=== PATIENT | female | born 2000 | race Two or more races ===

== ENCOUNTER 2019-01-02 22:48 | Emergency (ER) | payer OTHER ==
[2019-01-02 22:56] VITALS: BP 123/71
--- NOTE | 2019-01-02 23:10 | ED Physician Documentation ---
History of Present Illness - Stated complaint Stated Complaint: NEXPLANON REMOVAL - Chief complaint Chief Complaint: Neuro - History obtained from History obtained from: Patient - History of Present Illness Timing: How many weeks ago (2) - Additonal information Additional information: 18-year-old female had Nexplanon placed 2 weeks ago and Sshe is having issues with headache nausea and vomiting. She has had these issues since insertion and she has had similar symptoms when she had the Nexplanon placed previously and these resolved within 2 days. Her symptoms have now been present 2 weeks she states they are intolerable and she wants to have the Nexplanon removed today, now. Review of Systems Constitutional: reports: Fever Eyes: denies: Decreased vision Ears: denies: Ear pain Nose: denies: Rhinorrhea / runny nose, Congestion Throat: denies: Sore throat Cardiac: denies: Chest pain / pressure Respiratory: denies: Dyspnea, Cough GI: reports: Nausea, Vomiting. denies: Abdominal Pain : denies: Dysuria, Frequency Skin: denies: Rash Musculoskeletal: denies: Neck pain, Back pain, Extremity pain Neurologic: reports: Headache. denies: Generalized weakness, Focal weakness, Numbness, Head injury, LOC PD PAST MEDICAL HISTORY - Past Medical History Past Medical History: No - Past Surgical History Past Surgical History: Yes - Present Medications Home Medications: Ambulatory Orders Medication Instructions Recorded Confirmed Etonogestrel [Nexplanon] 01/02/19 - Allergies Allergies/Adverse Reactions: Allergies Allergy/AdvReac Type Severity Reaction Status Date / Time No Known Drug Allergies Allergy Verified 01/02/19 22:56 - Social History Does the pt smoke?: No Smoking Status: Never smoker Does the pt drink ETOH?: No Does the pt have substance abuse?: No - Immunizations Immunizations are current?: Yes - POLST Patient has POLST: No PD ED PE NORMAL - Vitals Vital signs reviewed: Yes (normal ) - General General: Alert and oriented X 3, No acute distress, Well developed/nourished - HEENT HEENT: Atraumatic, PERRL, EOMI, Ears normal, Moist mucous membranes, Pharynx benign, Dentition benign - Neck Neck: Supple, no meningeal sign, No bony TTP - Cardiac Cardiac: RRR, No murmur - Respiratory Respiratory: No respiratory distress, Clear bilaterally - Abdomen Abdomen: Soft, Non tender - Back Back: No CVA TTP, No spinal TTP - Derm Derm: Normal color, Warm and dry, No rash - Extremities Extremities: No deformity, No edema, No calf tenderness / cord - Neuro Neuro: Alert and oriented X 3, prepress specialist 2-12 intact, No motor deficit, No sensory deficit, Normal speech Eye Opening: Spontaneous Motor: Obeys Commands Verbal: Oriented GCS Score: 15 - Psych Psych: Normal mood, Normal affect Results - Vitals Vitals: Vital Signs - 24 hr 01/02/19 22:52 Temperature 36.2 C L Heart Rate 67 Respiratory 16 Rate Blood Pressure 123/71 O2 Saturation 100 Oxygen O2 Source Room air - Labs Labs: Laboratory Tests 01/02/19 23:15 Urine Color YELLOW Urine Clarity CLEAR Urine pH 6.0 Ur Specific [place] 1.025 Urine Protein NEGATIVE Urine Glucose (UA) NEGATIVE Urine Ketones NEGATIVE Urine Occult Blood NEGATIVE Urine Nitrite NEGATIVE Urine Bilirubin NEGATIVE Urine Urobilinogen 0.2 (NORMAL) Ur Leukocyte Esterase NEGATIVE Ur Microscopic Review NOT INDICATED Urine Culture Comments NOT INDICATED Urine HCG, Qual NEGATIVE Procedures - FB removal FB location: Subcutaneous FB removal preparation: Local anesthesia-specify (1% lido with bicarb) Removal method: Foreceps, Incision FB removal aftercare: No complications, Patient tolerated well, Removed successfully PD MEDICAL DECISION MAKING - ED course Complexity details: d/w leasing consultant (Atilio LIMA PEST CONTROL SUPERVISOR hyperion essbase developer. ) ED course: 18-year-old female who has had Nexplanon placed 2 weeks ago desires this to be removed today. She does complain of headache nausea and vomiting and she is adamant. I have consulted the on-call PEST CONTROL SUPERVISOR doctor at [facility] and she states that spaces are available in the clinic tomorrow for removal and symptoms are likely related. She gives recommended procedural guidelines and will be available tomorrow if needed. The patient would like to have this r emoved now rather than tomorrow and this is done in the ED with good results. Departure - Departure Disposition: 01 Home, Self Care Clinical Impression: Encounter for Nexplanon removal Condition: Stable Instructions: Etonogestrel implant Follow-Up: [facility] [Provider Group]
[2019-01-02] MEDS ORDERED: BUFFERED LIDOCAINE 10 ML SYRINGE SUBQ STA (23:11)
[2019-01-02 23:22] LABS: BILIRUBIN,URINE NEGATIVE (NEGATIVE); GLUCOSE, URINE (UA) NEGATIVE (NEGATIVE); KETONES,URINE (UA) NEGATIVE (NEGATIVE); LEUKOCYTE ESTERASE, URINE NEGATIVE (NEGATIVE); NITRITE,URINE NEGATIVE (NEGATIVE); OCCULT BLOOD,URINE NEGATIVE (NEGATIVE); PROTEIN,URINE NEGATIVE (NEGATIVE); UROBILINOGEN,URINE 0.2 (NORMAL) E.U./dL (NORMAL)
[2019-01-02 23:24] LABS: CLARITY,URINE CLEAR (CLEAR); HCG UR QUAL NEGATIVE
== END 2019-01-02 23:45 | disposition home or self-care (01) ==
LOC: ED 22:48
DX: Z30.46 Encounter for surveillance of implantable subdermal contraceptive (principal)
CPT/HCPCS: 10120; 11982; 81001; 81003; 81025; 87086; 99282; 99283

== ENCOUNTER 2019-01-23 08:42 | Emergency (ER) | payer OTHER ==
[2019-01-23] MEDS ORDERED: DEXAMETHASONE 10 MG/ML VIAL PO STA (09:25)
[2019-01-23] MEDS ORDERED: CHERRY SYRUP 10 ML UDC PO ONE (09:25)
[2019-01-23] MEDS ORDERED: PENICILLIN G BENZATHINE 600,000 UNIT/ML SYRINGE IM STA (09:26)
--- NOTE | 2019-01-23 09:29 | ED Physician Documentation ---
PD HPI URI - Stated complaint Stated Complaint: SORE THROAT - Chief complaint Chief Complaint: Heent - History obtained from History obtained from: Patient - History of Present Illness Timing - onset: How many days ago (2) Timing duration: Days (2) Timing details: Abrupt onset Severity Comments: moderate severity Associated symptoms: Fever, Sore throat. No: Chills, Sweats, Ear pain, Nasal congestion, Rhinorrhea, Sinus pain, Swollen nodes, Dry cough, Productive cough, Hemoptysis, Chest pain, Dyspnea, NVD, Bilateral edema Contributing factors: No: Sick contact, Immunocompromised, Unimmunized Improves by: Nothing Worsened by: Other (swallowing) Similar symptoms before: Other (similar to prior strep throat) Recently seen: Clinic - Treatment prior to arrival Treatment prior to arrival: ibuprofen, saw her clinic yesterday Review of Systems Constitutional: reports: Fever. denies: Chills, Fatigue Eyes: reports: Reviewed and negative Nose: reports: Reviewed and negative. denies: Rhinorrhea / runny nose, Congestion Throat: reports: Sore throat, Swollen tonsils. denies: Dental pain / toothache, Oral lesions / sores Cardiac: denies: Chest pain / pressure Respiratory: denies: Cough GI: denies: Nausea, Vomiting Skin: reports: Reviewed and negative Neurologic: reports: Reviewed and negative Immunocompromised: reports: Reviewed and negative PD PAST MEDICAL HISTORY - Past Medical History Past Medical History: No - Past Surgical History Past Surgical History: Yes - Present Medications Home Medications: Ambulatory Orders Medication Instructions Recorded Confirmed No Known Home Medications 01/23/19 01/23/19 - Allergies Allergies/Adverse Reactions: Allergies Allergy/AdvReac Type Severity Reaction Status Date / Time No Known Drug Allergies Allergy Verified 01/23/19 09:02 - Social History Does the pt smoke?: No Smoking Status: Never smoker Does the pt drink ETOH?: No Does the pt have substance abuse?: No - Immunizations Immunizations are current?: Yes - POLST Patient has POLST: No PD ED PE NORMAL - Vitals Vital signs reviewed: Yes - General General: Alert and oriented X 3 - HEENT HEENT: Atraumatic, PERRL, Moist mucous membranes - Neck Neck: Supple, no meningeal sign - Cardiac Cardiac: RRR, No murmur, No gallop, No rub - Respiratory Respiratory: No respiratory distress, Clear bilaterally - Abdomen Abdomen: Non distended - Female Female : Deferred - Rectal Rectal: Deferred - Derm Derm: Normal color, Warm and dry, No rash - Extremities Extremities: No deformity - Neuro Neuro: Alert and oriented X 3 Eye Opening: Spontaneous Motor: Obeys Commands Verbal: Oriented GCS Score: 15 PD ED PE EXPANDED - HEENT HEENT: Atraumatic, Head injury, Pharyngeal erythema, Swollen tonsils, Tonsillar exudate, Other (no uvular deviation) Results - Vitals Vitals: Vital Signs - 24 hr 01/23/19 08:58 Temperature 36.4 C L Heart Rate 83 Respiratory 16 Rate Blood Pressure 99/68 O2 Saturation 99 Oxygen O2 Source Room air - Labs Labs: Laboratory Tests 01/23/19 09:02 Group A Strep Rapid Negative strep neg PD MEDICAL DECISION MAKING - ED course Complexity details: reviewed results, re-evaluated patient, considered differential, d/w patient ED course: ddx - strep pharyngitis, viral pharyngitis, BREAD JOCKEY, URI Pt with sore throat, exudative tonsillitis, fever, no cough and cervical adenopathy although rapid strep neg I feel patient's symptoms are clinically consistent with strep and she has 4/4 centor criteria thus will treat empirically with antibiotics, dose of decadron for swelling and continued supportive care at home. Departure - Departure Disposition: 01 Home, Self Care Clinical Impression: Streptococcal pharyngitis Condition: Stable Record reviewed to determine appropriate education?: Yes Instructions: ED Strep Pharyngitis Poss Follow-Up: HUY MAYA MD [Primary Care Provider] - As Needed Comments: You were given a dose of intramuscular Penicillin G for your strep throat. This is a single dose treatment. You were also given a dose of a steroid to reduce swelling, this is also a one time dose You can taken tylenol or ibuprofen for pain. As well as throat lozenges.
[2019-01-23 10:24] VITALS: BP 113/78
== END 2019-01-23 10:24 | disposition home or self-care (01) ==
LOC: ED 08:42
DX: J02.0 Streptococcal pharyngitis (principal)
CPT/HCPCS: 87070; 87430; 96372; 99283; 99284; A9270